=== PATIENT | female | born 1995 | race Caucasian/White ===

== ENCOUNTER → 2017-11-04 | Outpatient (CLI) | payer BC ==
[2017-11-04 18:30] LABS: BASO % 0.3 % (0.0-1.0); EOS # 0.1 10^3/uL (0.0-0.50); EOS % 1.6 % (0.0-3.0); HEMATOCRIT 38.7 % (36.0-47.0); HEMOGLOBIN 13.2 g/dl (12.0-15.5); IMMATURE GRANULOCYTE % 0.4 % (0-3.0); LYMPH # 1.6 10^3/uL (1.5-6.5); LYMPH % 19.4 % (24.0-44.0); MEAN CORPUSCULAR HEMOGLOBIN 31.3 pg (27.0-33.0); MEAN CORPUSCULAR HGB CONC 34.1 g/dl (32.0-36.5); MEAN CORPUSCULAR VOLUME 91.7 fl (80.0-96.0); MONO # 0.5 10^3/uL (0.0-0.8); NEUTROPHILS # 5.8 10^3/uL (1.8-7.7); NEUTROPHILS % 72.3 % (36.0-66.0); PLATELET COUNT, AUTOMATED 316 10^3/uL (150-450); RED BLOOD COUNT 4.22 10^6/uL (4.00-5.40); RED CELL DISTRIBUTION WIDTH 12.9 % (11.5-14.5)
[2017-11-04 18:58] LABS: RUBELLA IgG QUALITATIVE IMMUNE (IMMUNE)
[2017-11-04 19:27] LABS: HIV 1&2 SCREEN CENTAUR NEGATIVE (NEGATIVE)
[2017-11-05 11:32] LABS: CHLAMYDIA DNA AMPLIFICATION NEGATIVE (NEGATIVE); GC DNA AMPLIFICATION NEGATIVE (NEGATIVE)
[2017-11-06 10:43] LABS: HBsAg Prenatal NEGATIVE (NEGATIVE)
[2017-11-06 11:11] LABS: HEPATITIS C VIRUS ABY INDEX 0.1 INDEX (<0.8)
== END ==
LOC: M SMT 13:39
DX: Z3A.09 9 weeks gestation of pregnancy (principal)
CPT/HCPCS: 86762

== ENCOUNTER → 2018-01-03 | Outpatient (CLI) | payer BC | LOC: M RAD 14:33 | DX: Z36.9 Encounter for antenatal screening, unspecified (principal); Z3A.18 18 weeks gestation of pregnancy | CPT/HCPCS: 76817 ==

== ENCOUNTER → 2018-02-28 | Outpatient (CLI) | payer BC ==
[2018-02-28 11:06] LABS: BASO % 0.4 % (0.0-1.0); EOS # 0.1 10^3/uL (0.0-0.50); EOS % 1.4 % (0.0-3.0); HEMATOCRIT 35.4 % (36.0-47.0); HEMOGLOBIN 11.9 g/dl (12.0-15.5); IMMATURE GRANULOCYTE % 0.6 % (0-3.0); LYMPH # 1.3 10^3/uL (1.5-6.5); LYMPH % 16.4 % (24.0-44.0); MEAN CORPUSCULAR HEMOGLOBIN 31.7 pg (27.0-33.0); MEAN CORPUSCULAR HGB CONC 33.6 g/dl (32.0-36.5); MEAN CORPUSCULAR VOLUME 94.4 fl (80.0-96.0); MONO # 0.4 10^3/uL (0.0-0.8); NEUTROPHILS # 6.2 10^3/uL (1.8-7.7); NEUTROPHILS % 76.2 % (36.0-66.0); PLATELET COUNT, AUTOMATED 236 10^3/uL (150-450); RED BLOOD COUNT 3.75 10^6/uL (4.00-5.40); WHITE BLOOD COUNT 8.1 10^3/uL (4.0-10.0)
[2018-02-28 11:34] LABS: GLUCOSE CHALLENGE TEST 1 HOUR 101 MG/DL (LESS THAN 140)
== END ==
LOC: M LAB 08:59
DX: Z34.82 Encounter for supervision of other normal pregnancy, second trimester (principal); Z3A.00 Weeks of gestation of pregnancy not specified
CPT/HCPCS: 82950

== ENCOUNTER → 2018-05-14 | Outpatient (REF) | payer BC ==
[~2018-05-14] MED LIST: ANUS2.5C2 TOP; COLA100C5 PO; IBUP-1114 PO; MAPA500T2 PO; MOM30SS PO; PRENTAB9 PO
== END ==
LOC: M LAB REF 12:16
PROVIDERS: ATTEND Advanced Practice Midwife
DX: Z34.83 Encounter for supervision of other normal pregnancy, third trimester (principal)

== ENCOUNTER 2018-06-06 11:09 | Inpatient (IN) | payer BC ==
[~2018-06-06] VITALS: Ht 167.6 cm; Wt 87.7 kg
[2018-06-06] VITALS (19 sets, daily range): BP systolic 119–165; BP diastolic 55–90
[2018-06-06 12:18] LABS: HEMATOCRIT 39.1 % (36.0-47.0); HEMOGLOBIN 13.3 g/dl (12.0-15.5); MEAN CORPUSCULAR HEMOGLOBIN 31.4 pg (27.0-33.0); MEAN CORPUSCULAR VOLUME 92.4 fl (80.0-96.0); PLATELET COUNT, AUTOMATED 236 10^3/uL (150-450); RED BLOOD COUNT 4.23 10^6/uL (4.00-5.40); WHITE BLOOD COUNT 8.9 10^3/uL (4.0-10.0)
[2018-06-06] MEDS ORDERED: LR 1,000 ML IV SCH (12:34)
[2018-06-06] MEDS ORDERED: OXYTOCIN DRIP 30 UNITS in APPROPRIATE DILUENT 1 EA IV SCH ×2 (12:45→18:25)
[2018-06-06] MEDS ORDERED: OXYTOCIN 30 UNITS IN 0.9% NaCl 500ML IV BAG (J2590) As Ordered ONE (12:45)
--- NOTE | 2018-06-06 12:45 | HPEPDOC ---
Obstetrical History & Physical General Date of Admission Jun 06, 2018 at 11:09 Primary Care Physician: HANH SANFORD CNM History of Present Illness Patient is a 22-year-old female who is a at 40.1 weeks gestation with an SMOOTH of 06/05/18 based off of her 1st trimester ultrasound. She initiated care in her first trimester. Her has been uncomplicated. She presents to L&D for an elective induction of labor. She reports contractions and movement but denies leaking of fluid or vaginal bleeding. Chief Complaint: Induction of labor Information Provided By: Patient Age: 22 : 2 Term: 1 Pre-term: 0 Abortions: 0 Livin Care Care: Good Care Dating Final EDC: Jun 05, 2018 Final EDC by: 1st trimester (US) EGA at Admission: 40.1 Antepartum Course Height (inches): 66 Pre- weight (lbs.): 145 Admission Weight (lbs.): 193 Change in Weight (lbs.): 48 Past Medical History Past Obstetrical History : Past Obstetrical History: Primgravida Gestation: 41.1 Type of Delivery: Spontaneous Vaginal Del. (Decelber 2015) Sex of Infant: Female (6 lbs. 9 oz.) Complications: No SLIDE ATTENDANT History: No pertinent history Past Medical History Surgical History: Other (ACL repair 2011) Family History Significant Family History: Hypertension Social History Marital Status: Family situation: Spouse/partner home Psychosocial History: No pertinent psych hx * Smoker: non-smoker Alcohol: Denies Drugs: denies Abuse Violence Screening Have you been hit/kicked/slapp: No Have you been sexually assault: No Imunizations Tdap status: current Influenza Status: current Allergies Coded Allergies: No Known Allergies (Unverified , 04/27/16) Medications Scheduled Multivitamins/ ( 27-0.8 mg) 1 Tab Tab, 1 TAB PO DAILY Physical Examination Physical Examination GENERAL: Alert and oriented times three. BREAST: . ABDOMEN: Gravid and non-tender to touch. FETUS: Is vertex (VTX) by sterile vaginal examination (SVE), fetus is vertex (VTX) by Mauricio. HEART RATE: Regular rate and rhythm. LUNGS: Clear to auscultation (CTA). EXTREMITIES: No edema. No clonus. Deep tendon reflexes (DTRs) + . Vital Signs/I&O Vital Signs Date Time Temp Pulse Resp B/P (MAP) Pulse Ox O2 Delivery O2 Flow Rate FiO2 06/06/18 11:37 96.7 66 18 128/83 (98) Room Air Laboratory Data 24H LABS Laboratory Tests 2 06/06/18 12:03: Serology Scanned Report Hepatitis B Testing 06/06/18 12:08: Nucleated Red Blood Cells % (auto) 0.0 CBC/BMP Laboratory Tests 06/06/18 12:08 Red Blood Count 4.23, Mean Corpuscular Volume 92.4, Mean Corpuscular Hemoglobin 31.4, Mean Corpuscular Hemoglobin Concent 34.0, Red Cell Distribution Width 13.2 Pertinent Laboratoy Data Blood Type: O+ RBC Antibody Screen: Negative HIV: Negative Hepatitis B: Negative Hepatitis C: Negative Rapid Plasma Reagin: Nonreactive Rubella: Immune Chlamydia/Gonorrhea: Negative Group B Streptococcus: Negative Glucose Tolerance Test: 101 Vaginal Examination Dilation: 3 cm Effacement: 80% Station: -2 Cervical Consistency: Soft Cervical Position: Middle Presentation: Cephalic presentation Position: Vertex (occiput) Assessment Heart Rate (FHR): 140 Variability: Moderate Accelerations: Positive Decelerations: None Tocometer Contractions: Yes Frequency: regular, other (1 to 4 minutes) Strength: palpated as mild Multi-drug resistant Organism: No history of MDRO Assessment/Plan Assessment IUP at 40.1 week gestation GBS negative Category I FHR tracing elective induction of labor Plan Admit to L&D. OOB ad kosta. Diet: clears. Group B Streptococcus (GBS) negative. Labs and intravenous (IV) per unit protocol. Counseled on Pitocin and induction of labor (IOL). Lactated Ringers (LR): Bolus 800 mL, then at 125 mL/hr. Anesthesia consult per patient's request. Anticipate cervical change and normal spontaneous delivery (). HANH SANFORD CNM Jun 06, 2018 12:45
[2018-06-06] MEDS ORDERED: FENTANYL 2MCG/ML ROPIVACAINE 0.2% IN 0.9% NACL 100ML IVBAG As Ordered ONE (15:21)
[2018-06-06] MEDS ORDERED: LABETALOL HCL 100 MG/20 ML VIAL IV PRN (17:00)
[2018-06-06] MEDS ORDERED: ePHEDrine SULFATE 25 MG/5 ML(5MG/ML) SYRINGE IV PRN (17:00)
[2018-06-06] MEDS ORDERED: fentaNYL 100 MCG/2 ML INJECTION (J3010) IV PRN (17:00)
[2018-06-06] MEDS ORDERED: ONDANSETRON 4MG/2ML VIAL (J2405) IV PRN (17:00)
--- NOTE | 2018-06-06 17:12 | IPNPDOC ---
Obstetrical Progress Note Date of Service Jun 06, 2018 Subjective Patient reports she is comfortable with her epidural. Objective Vital Signs Date Time Temp Pulse Resp B/P (MAP) Pulse Ox O2 Delivery O2 Flow Rate FiO2 06/06/18 17:02 96.6 82 18 127/75 (92) Room Air Assessment Heart Rate (FHR): 150 Variability: Moderate Accelerations: Positive Decelerations: Variable Heart Rate Tracing: Category II Tocometer Contractions: Yes Frequency: regular, other (2-3 minutes) Strength: palpated as strong Sterile Vaginal Examination Dilation: 7 cm Effacement (%): 90% Station: 0 Cervical Consistency: Soft Cervical Position: Anterior Postion/Presentation: Cephalic presentation Assessment and Plan Age: 22 : 2 Term: 1 Pre-term: 0 Abortions: 0 Livin EGA at Admission: 40.1 Status: Reassuring Group B Streptococcus: Negative Anticipate: Vaginal Delivery Additional Comments Pitocin decreased to 4 mu/min. AROM to a moderate amount of clear fluid. Will continue to monitor. HANH SANFORD CNM Jun 06, 2018 17:12
[2018-06-06] MEDS ORDERED: DIBUCAINE 1% OINTMENT 30GM TOP PRN (18:30)
[2018-06-06] MEDS ORDERED: DOCUSATE SODIUM 100 MG CAP PO PRN (18:30)
[2018-06-06] MEDS ORDERED: METHYLERGONOVINE MALEATE 0.2 MG TAB PO PRN (18:30)
[2018-06-06] MEDS ORDERED: RHOGAM 300 MCG (1500 IU) INJ (J2790) IM SCH (18:30)
[2018-06-06] MEDS ORDERED: ACETAMINOPHEN 500 MG TAB PO PRN (18:30)
[2018-06-06] MEDS ORDERED: MEASLES,MUMPS,RUBELLA VACCINE INJ (MMR-II) (90707) SC SCH (18:30)
[2018-06-06] MEDS ORDERED: ANUSOL HC CREAM 30GM TOP PRN (18:30)
--- NOTE | 2018-06-06 18:52 | DNPDOC ---
[facility] Delivery Note Delivery Note DATE OF DELIVERY: 06/06/2018 at 1808 PREDELIVERY DIAGNOSIS: 40-1/7 weeks' gestation and labor. POST DELIVERY DIAGNOSIS: Delivered. PROCEDURE: Spontaneous vaginal delivery. PUBLICATIONS EDITOR: Hanh Jennings CNM, HARSHIL ANESTHESIA: epidural. ESTIMATED BLOOD LOSS: 250 mL. FINDINGS: 7 pounds 10 ounces; male , Score 9/9, multiple variable decelerations. DELIVERY SUMMARY: Patient is a 22-year-old female who is now a at 40.1 weeks gestation. She presented to L&D for an elective induction of labor. The patient had an epidural for pain management. She progressed to fully dilated at 1758 with the use of IV Pitocin and pushed to a living male at 1808 in the OA position with restitution to ROT. The anterior shoulder delivered with ease and the corpus immediately followed. The baby was placed on the maternal abdomen, [id number], active and crying. The cord was clamped x2 after pulsation ceased and cut by the FOB. A 3-vessel cord was noted. The placenta delivered spontaneously and intact at 1812. Uterine hemostasis was achieved via rapid infusion of IV Pitocin and fundal massage. The vagina and perineum were inspected and found to be intact. Mom plans to breastfeed. They plan on naming him "[place]." Both mom and baby are in stable condition. HANH JENNINGS CNM Jun 06, 2018 18:52
[2018-06-06] MEDS: IBUPROFEN 800 MG TAB PO PRN (23:47)
[2018-06-07 06:12] VITALS: BP 131/69
--- NOTE | 2018-06-07 07:53 | IPNPDOC ---
Text Note Date of Service The patient was seen on 06/07/18. NOTE PP #1 Feels well. on demand. Voiding VSS, afebrile, normotensive Breasts soft, nipples intact Fundus firm, NT, down 1 FB Lochia rubra light without odor Perineum well approximated without edema Legs negative Routine care. Anticipate D/C in am VS,Fishbone, I+O VS, Fishbone, I+O Laboratory Tests 06/06/18 12:08 Red Blood Count 4.23, Mean Corpuscular Volume 92.4, Mean Corpuscular Hemoglobin 31.4, Mean Corpuscular Hemoglobin Concent 34.0, Red Cell Distribution Width 13.2 Vital Signs Date Time Temp Pulse Resp B/P (MAP) Pulse Ox O2 Delivery O2 Flow Rate FiO2 06/07/18 06:12 97.3 90 18 131/69 (89) 06/06/18 17:02 Room Air I&O- Last 24 Hours up to 6 AM 06/07/18 06:00 Output Total 700 ml Balance -700 ml Tere Rausch CNM Jun 07, 2018 07:53
[2018-06-07] MEDS: IBUPROFEN 800 MG TAB PO PRN (08:10)
[2018-06-07] MEDS ORDERED: PRENATAL VITAMINS CHEWABLE TABLET PO SCH (09:00)
[2018-06-07] MEDS ORDERED: MAPA500T2 PO (16:49)
[2018-06-07] MEDS ORDERED: IBUP-1114 PO (16:50)
== END 2018-06-07 19:00 | disposition home or self-care (01) | DRG 560 ==
LOC: M LDI 11:09 → M OBS 21:49
PROVIDERS: ADMIT Advanced Practice Midwife; ATTEND Advanced Practice Midwife
PROC: 10E0XZZ Delivery of Products of Conception, External Approach (ICD-10-PCS; principal; 2018-06-06)
PROC: 3E033VJ Introduction of Other Hormone into Peripheral Vein, Percutaneous Approach (ICD-10-PCS; 2018-06-06)
DX: O48.0 Post-term pregnancy (principal); O76 Abnormality in fetal heart rate and rhythm complicating labor and delivery; Z37.0 Single live birth; Z3A.40 40 weeks gestation of pregnancy